=== PATIENT | male | born 1995 | race Hispanic/Latino ===

== ENCOUNTER 2025-09-04 07:47 | Emergency (ER) | payer OTHER, SELFPAY ==
--- NOTE | ~2025-09-04 | XR_ITS ---
EXAMINATION: XR chest 2V 09/04/2025 10:37 INDICATION: Wheezing left upper lobe PROCEDURE: 2 view chest COMPARISON: No prior studies for comparison. FINDINGS: The lungs are clear. The cardiomediastinal silhouette is within normal limits. There are no pleural effusions. There is no pneumothorax suspected. IMPRESSION: 1: NO ACUTE CARDIOPULMONARY DISEASE. Reviewed, dictated and finalized at location O. ENTICE FUNERAL DIRECTOR
[2025-09-04 07:53] VITALS: BP 132/65; PULSE 86; RESP 16; TEMP 37.2; O2SAT 100
[2025-09-04 09:19] VITALS: BP 142/76; PULSE 84; RESP 16; O2SAT 99
--- OUTSIDE RECORDS SUMMARY | 2025-09-04 10:01 | XMS_ITS ---
Author Organization Unknown ENCOUNTERS Encounter Performer Location Date Diagnosis Diagnosis Status Emergency [place] [id number] [place] [address] [id number] Pre Admit [place] [id number] [place] [address] [phone] *Note: Encounters from your own facility or health system may be excluded. Allergies, Adverse Reactions, Alerts Allergen Type Severity Identification Date Medications Name Date Quantity Days Supplied GPI Number
--- OUTSIDE RECORDS SUMMARY | 2025-09-04 10:01 | XMS_ITS | Encounter Summary ---
Author Organization [facility] Healthcare Address [address] [place] [address] Care Team Providers Care Casing Flusher Name Role Phone Tito Alcantar Primary Care Provider [phone] Encounter Details Date Type Department Care Team (Late st Contact Info) Description 07/03/2025 Results Follow-Up [facility] Family Medicine [address] [place] [address] Tito Alcantar PA [address] [place], [place] [id number] US Scrotum Social History Tobacco Use Types Packs/Day Years Used Date Smoking Tobacco: Never Smokeless Tobacco: Never AUDIT-C Answer Date Recorded Q1: How often do you have a drink containing alcohol? Never 01/03/2024 Q2: How many drinks containi ng alcohol do you have on a typical day when you are drinking? Patient does not drink Q3: How often do you have si x or more drinks on one occasion? Never 01/03/2024 PHQ-2 Answer Date Recorded PHQ-2 Total Score (If total score is 3 or more points, staff should administer the PHQ-9) 0 03/19/2025 Personal Safety Answer Date Recorded Have you ever been in or are you currently in a harmful physical or emotional relationship or is someone making you feel afraid or unsafe? Denies 05/28/2024 Sex and Gender Information Value Date Recorded Sex Assigned at Not on file Legal Sex Male 3:54 PM CDT Gender Identity Not on file Sexual Orientation Not on file Occupation Industry Job Start Date Job End Date [employer] Not on file Not on file Not on file documented as of this encounter Plan of Treatment Not on file documented as of this encounter Visit Diagnoses Not on filedocumented in this encounter Care Teams Casing Flusher Relationship Specialty Start Date End Date Tito Alcantar PA [address] [place] [address] PCP - General Family Medicine 02/10/25 documented as of this encounter
--- OUTSIDE RECORDS SUMMARY | 2025-09-04 10:01 | XMS_ITS | Clinical Summary ---
Author Organization [facility] [address] lt Address [address] [facility] [address] Care Team Providers Care Machine Zipper Trimmer Name Role Phone Tito Alcantar Primary Care Provider [phone] Allergies No known active allergies Medications No known medications Active Problems Problem Noted Date Diagnosed Date Routine general medical exam ination at a health care facility 01/03/2024 Assessment & Plan (01/03/2024 3:47 PM CDT): Encouraged exercise on regular basis.. Blood work was ordered. Discussed vaccines for his age group. He does not smoke. Gastroesophageal reflux disease without esophagi tis 01/03/2024 Assessment & Plan (01/03/2024 3:45 PM CDT): Patient complains of chronic bloating and heartburn. Will put him on Prilosec 40 mg daily. Avoid food that triggers the symptoms and will make him a referral to see gastro enterologist Irritable bowel syndrome with constipation 04/27 Assessment & Plan (10/30/2023 11:02 AM OPTICAL INSTRUMENT ASSEMBLER): Chronic. Improve. Patient no longer using MiraLax or senna-docusate. Belching symptom 04/27/2023 Excessive gas 04/27/2023 Constipation 04/27/2023 Assessment & Plan (01/03/2024 3:45 PM CDT): Patient with chronic constipation. He was evaluated by marine electrician helper last year. He had colonoscopy in May 2023 that showed some erythema in the rectum and hemorrhoids otherwise it was unremarkable. Patient takes [id number] medications. I told him to try MiraLax. Will make him a referral to see marine electrician helper for persistent symptoms. Encounters Date Type Department Care Team Description 07/03/2025 Results Follow-Up [facility] Family Medicine [address] [place] [address] Tito Alcantar PA Scrotum 07/02/2025 5:58 PM CDT - 07/02/2025 11:59 PM CDT Hospital Encounter [facility] [address] [place] [address] Pain in right testicle Discharge Disposition: Discharge to home or self care from Last 3 Months Immunizations Immunization Administration Dates Next Due HPV9 06/17/2015 Influenza, Unspecified 06/11/2023(Deferr ed: Patient decision),06/11/2022(Deferred: Patient Refused),06/11/2021(Deferred: Patient Refused) Meningococcal MCV4P (Menactra) 06/17/2015 Tdap 04/11/2023 Surgical History Surgery Date Site/Laterality Comments COLONOSCOPY 06/05/2023 Family History Medical History Relation Name Comments Alcohol abuse Father Zeke Diabetes Father Zeke Arthritis Mother Maribell Relation Name Status Comments Brother Alive Father Zeke Alive Maternal Grandfather Maternal Grandmother Mother Maribell Alive Paternal Grandfather Alive Paternal Grandmother Alive Sister Alive Social History Tobacco Use Types Packs/Day Years [...] Industry Job Start Date Job End Date [employer] Not on file Not on file Not on file Last Filed Vital Signs Vital Sign Reading Time Taken Comments Blood Pressure 124/80 03/19/2025 8:39 AM CDT Pulse 65 03/19/2025 8:39 AM CDT Temperature 37.1 C (98.7 F) 05/28/2024 3:43 PM CDT Respiratory Rate 18 03/19/2025 8:39 AM CDT Oxygen Saturation 97% 03/19/2025 8:39 AM CDT Inhaled Oxygen Concentration - - Weight 103.9 kg (229 lb) 03/19/2025 8:39 AM CDT Height 182.9 cm (6') 03/19/2025 8:39 AM CDT Body Mass Index 31.06 03/19/2025 8:39 AM CDT Plan of Treatment Health Maintenance Due Date Last Done Comments Hepatitis C Screening 1997 Varicella Vaccines (1 of 2 - 13+ 2-dose series) 2010 HPV Vaccines (2 - Male 3-dose series) 07/15/2015 06/17/2015 Hepatitis B Screening 11/19/2015 Covid-19 Vaccine ( season) 2025 03/29/2021, 03/07/2021 Influenza Vaccine (#1) 2025 Depression Screening 03/19/2026 03/19/2025, 02/10/2025, 01/03/2024, Additional history exists Regular Well Visit/Exam 18-64 03/19/2026 03/19/2025, 03/19/2025, 01/03/2024, Additional history exists DTaP/Tdap/Td Vaccine (2 - Td or Tdap) 04/11/2033 04/11/2023 Pneumococcal vaccine <65 Aged Out No longer eligible based on patient's age to complete this topic Procedures Procedure Name Priority Date/Time Associated Diagnosis Comments US SCROTUM Schedule Routine, Read Routine (OP Routine) 07/02/2025 6:48 PM CDT Pain in right testicle from Last 3 Months Results * US Scrotum (07/02/2025 6:48 PM CDT) Anatomical Region Laterality Modality Testis N/A Ultrasound 07/03/2025 11:1 0 AM CDT Impressions 07/03/2025 11:10 AM CDT 1. No definite sonographic evidence of testicular torsion or mass. 2. No definite sonographic evidence of a focal fluid collection, inguinal hernia, or mass in the region of patient's pain involving the right groin soft tissues. Electronically signed by: Katherine Lo 07/03/2025 11:10 AM CDT EXAMINATION: SCROTAL SONOGRAM HISTORY: Right testicular pain for 5 months. COMPARISON: None TECHNIQUE: Ultrasound was performed on the scrotum with grayscale and color Doppler. FINDINGS: The right testis measures 4.5 x 2.8 x 2.6 cm. The testis is normal in size and echotexture. There is normal Doppler flow. The epididymis is normal in appearance. There is no significant hydrocele or varicocele. The left testis measures 4.5 x 3.0 x 2.8 cm. The testis is normal in size and echotexture. There is normal Doppler flow. The epididymis is normal in appearance. There is no significant hydrocele or varicocele. There is no definite sonographic evidence of focal fluid collection, inguinal hernia, or mass in the region of patient's pain involving the right groin soft tissues. Procedure Note Te Montesinos, DO - 07/03/2025 EXAMINATION: SCROTAL SONOGRAM HISTORY: Right testicular pain for 5 months. COMPARISON: None TECHNIQUE: Ultrasound was performed on the scrotum with grayscale and color Doppler. FINDINGS: The right testis measures 4.5 x 2.8 x 2.6 cm. The testis is normal in size and echotexture. There is normal Doppler flow. The epididymis is normal in appearance. There is no significant hydrocele or varicocele. The left testis measures 4.5 x 3.0 x 2.8 cm. The testis is normal in size and echotexture. There is normal Doppler flow. The epididymis is normal in appearance. There is no significant hydrocele or varicocele. There is no definite sonographic evidence of focal fluid collection, inguinal hernia, or mass in the region of patient's pain involving the right groin soft tissues. IMPRESSION: 1. No definite sonographic evidence of testicular torsion or mass. 2. No definite sonographic evidence of a focal fluid collection, inguinal hernia, or mass in the region of patient's pain involving the right groin soft tissues. Electronically signed by: Te Montesinos D.O. us Tito BURTON IM US PROCEDURES Final Res ult from Last [address] [address] [facility] Advance Directives For more information, please contact: [phone] * Full Code (Latest Code Status on File) Date Activated Date Inactivated Comments 06/05/2023 10:17 AM 06/05/2023 4:32 PM * Full Code Date Activated Date Inactivated Comments 06/05/2023 10:17 AM 06/05/2023 10:17 AM Care Teams Machine Zipper Trimmer Relationship Specialty Start Date End Date Tito Alcantar PA [address] [address] PCP - General Family Medicine 02/10/25
--- NOTE | 2025-09-04 10:14 | ED.URI ---
HPI - URI/Sore Throat General Chief Complaint: Upper Respiratory Infection Stated Complaint: sore throat, swelling to neck Time Seen by Provider: 09/04/25 09:14 History of Present Illness HPI Narrative: Patient is a 29-year-old male who presents to the ER with congestion, sore throat, and swollen lymph nodes. He reports his sore throat started on Monday, 4 days ago. Patient reports he noticed a knot in my neck yesterday. He denies any recent fatigue, fevers, chest pain, headache or abdominal pain. Patient does endorse a slight cough. He denies any medical history relevant to this ER visit. Related Data Allergies Allergy/AdvReac Type Severity Reaction Status Date / Time No Known Allergies Allergy Verified 09/04/25 09:19 Review of Systems Review of Systems: All systems reviewed & are unremarkable except as noted in HPI and below Exam Narrative: GENERAL: Well appearing, well-nourished, non-toxic, in no acute distress. HEAD: Normocephalic, atraumatic. NECK: Supple. + Cervical lymphadenopathy R>L RESPIRATORY: Airway patent, respirations nonlabored. Clear to auscultation bilaterally. Slight wheeze left upper lobe CARDIOVASCULAR: Regular rate and rhythm without murmurs, rubs, or gallops. Peripheral pulses 2+ and equal bilaterally. ABDOMINAL: Soft, nontender, nondistended, no hepatosplenomegaly. Normoactive BS. MUSCULOSKELETAL: Moves all extremities. Strength/ROM intact without gross deformities. SKIN: Warm, dry, normal color. No rashes. NEURO: A&O X3. Speech clear. Cranial nerves II-XII intact. No ataxic movements. PSYCHIATRIC: Appropriate mood and affect. Normal interaction. Course Vital Signs Vital signs: Vital Signs Temperature 37.2 C 09/04/25 07:53 Pulse Rate 86 09/04/25 07:53 Respiratory Rate 16 09/04/25 07:53 Blood Pressure 132/65 09/04/25 07:53 Pulse Oximetry 100 09/04/25 07:53 Oxygen Delivery Room Air 09/04/25 07:53 Temperature 37.2 C 09/04/25 07:53 Pulse Rate 82 09/04/25 10:40 Respiratory Rate 17 09/04/25 10:40 Blood Pressure 133/80 09/04/25 10:40 Pulse Oximetry 97 09/04/25 10:40 Oxygen Delivery Room Air 12/25/25 09:19 [facility] Narrative Medical decision making narrative: Patient is a 29-year-old male who presents to the ER with congestion, sore throat, and swollen lymph nodes. He reports his sore throat started on Monday, 4 days ago. Patient reports he noticed a knot in my neck yesterday. He denies any recent fatigue, fevers, chest pain, headache or abdominal pain. Patient does endorse a slight cough. He denies any medical history relevant to this ER visit. Labs Ordered: Strep swab, COVID/ flu/RSV swab Imaging Ordered: chest x-ray indicates no acute cardiopulmonary abnormalities Medications Ordered: DuoNeb, Toradol IM Diagnosis: influenza a, upper respiratory infection Patient Education/Shared MDM: Results of lab work and imaging shared with patient. he endorses improvement of symptoms following medication administration. Patient strongly advised to maintain hydration status upon discharge and follow-up with his PCP in 2-3 days for re-evaluation. he will be discharged home with a prescription for albuterol inhaler, and Tessalon Perles. Strict return precautions provided. Patient verbalized understanding and is in agreement with plan. Vital signs stable at time of discharge. All questions answered. Differential Diagnosis Differential Diagnosis: upper respiratory infection, COVID, influenza, strep throat Lab Data [facility] Lab Attestation statement: I personally reviewed the patient's lab results. Labs: Lab Results 09/04/25 Range/Units 10:30 Influenza A (RT-PCR) Positive A (Negative) Influenza B (RT-PCR) Negative (Negative) RSV (RT-PCR) Negative (Negative) SARS-CoV-2 RNA (RT-PCR) Negative (Negative) Group A Strep (PCR) Not detected (Negative) Imaging Data Attestation: I personally reviewed and interpreted this imaging study as follows: Radiologist's impression: ITS Impressions Chest X-Ray 09/04/25 10:39 IMPRESSION: 1: NO ACUTE CARDIOPULMONARY DISEASE. Discharge Plan Discharge Clinical Impression: Upper respiratory infection, Influenza Patient Disposition: Home Condition: Stable Instructions: Antibiotic Form, Influenza (ED) Additional Instructions: Please return to the ER with any worsening symptoms. Follow-up with primary care provider in 2-3 days for re-evaluation. Please take Tylenol and/or ibuprofen for pain control. You may use Tessalon Perles as needed to treat your cough. Please use an inhaler to treat wheezing. Patient Language: Romanian Prescriptions: New albuterol sulfate [Ventolin HFA] 90 mcg/actuation HFA aerosol inhaler 2 puff inhalation QID PRN (Reason: shortness of breath or wheezing) Qty: 6.7 0RF benzonatate 100 mg capsule 100 mg PO TID Qty: 12 0RF Follow-up/Referrals: PHYSICIAN NOT ON STAFF,NONSTAFF [Primary Care Provider] Time of Disposition: 11:59
[2025-09-04 10:24] VITALS: RESP 19
[2025-09-04] MEDS: IPRATROPIUM 0.5 MG/ALBUTEROL SULFATE 2.5 MG (BASE) AMPUL.NEB 3 ML INHALATION (10:24)
[2025-09-04 10:30] VITALS: RESP 18
[2025-09-04 10:40] VITALS: BP 133/80; PULSE 82; RESP 17; O2SAT 97
[2025-09-04] MEDS: KETOROLAC (*BKC) 60 MG/2 ML VIAL IM (10:41)
[2025-09-04 11:10] LABS: Strep Group A RT-PCR NOT DETECTED (Negative)
[2025-09-04 11:24] LABS: Influenza A QL RT-PCR Positive (Negative); Influenza B QL RT-PCR Negative (Negative); RSV RNA, RT-PCR Negative (Negative); SARS-CoV-2 RNA PCR Negative (Negative)
[2025-09-04 12:27] VITALS: BP 135/69; PULSE 73; RESP 17; TEMP 37.1; O2SAT 98
== END 2025-09-04 12:29 | disposition home or self-care (01) ==
PROVIDERS: Emergency Provider Registered Nurse
DX: J10.1 Influenza due to other identified influenza virus with other respiratory manifestations (principal); Z20.822 Contact with and (suspected) exposure to COVID-19
CPT/HCPCS: 71046; 87637; 87651; 94640; 96372; 99283; J1885